=== PATIENT | female | born 1955 | race Caucasian/White ===

== ENCOUNTER 2016-06-29 09:10 | Emergency (ER) | payer OTHER ==
[~2016-06-29] VITALS: Ht 167.6 cm; Wt 67.0 kg
[~2016-06-29 09:10] MED LIST: BUDE100T PO; LEVA250T14 PO; MONT4CHW2 CHEW; PREM0.3T2 PO
[2016-06-29 09:27] VITALS: BP 149/66; PULSE 64; RESP 17; TEMP 97.9; O2SAT 98
[2016-06-29] MEDS ORDERED: TRAM50TA PO (09:36)
[2016-06-29] MEDS ORDERED: ESTR2TAB PO (09:36)
[2016-06-29] MEDS ORDERED: MONT10TA4 PO (09:36)
[2016-06-29] MEDS ORDERED: BUPR100CR PO (09:36)
[2016-06-29] MEDS ORDERED: KETOROLAC TROMETHAMINE 30 MG/ML (IVP) VIAL IV PUSH ONE (09:45)
[2016-06-29] MEDS ORDERED: MORPHINE SULFATE 4 MG/ML INJ IV PUSH ONE (09:45)
--- NOTE | 2016-06-29 09:49 | PD ---
HPI Chief Complaint: Back/ Neck Pain or Injury Time Seen by Provider: 09:28 Travel History International Travel<30 days: No Contact w/Intl Traveler<30days: No Traveled to known affect area: No History of Present Illness HPI This 60-year-old woman who presents to the emergency department complaining of back pain rating in her right leg associated weakness and numbness. She describes numbness across her anterior leg mostly below the knee, as well as weakness and difficulty walking. She states is been ongoing for the past week and has been worsening. She took some Motrin and some tramadol which hasn't helped. She saw her primary doctor yesterday who is ordering an MRI for today. She states she was walking today when she was sober, pain that she got weak and collapsed to ground. She has not been able to walk since. Her called EMS. History Past Medical History Narrative Medical Asthma Hormone replacement therapy Chronic back pain Menopausal: Yes Dilation and Curettage (D&C): Yes Social History Alcohol Use: Yes (RARELY) Tobacco Use: No Allergies-Medications (Allergen,Severity, Reaction): Coded Allergies: Bactrim (Verified Adverse Reaction, Severe, AGUAYO, weakness, nausea, 06/29/16) Reported Meds & Prescriptions Reported Meds & Active Scripts Active Percocet (Oxycodone-Acetaminophen) 5-325 mg Tab 1-2 Tab PO Q4H PRN Debbie-Colace (Sennosides-Docusate Sodium) 8.6-50 Mg Tab 2 Tab PO BID PRN Naprosyn (Naproxen) 500 Mg Tab 500 Mg PO BID PRN Reported Wellbutrin SR 12 HR (Bupropion HCl) 100 Mg Tab 100 Mg PO Q12HR Estradiol 2 Mg Tab 2 Mg PO DAILY Montelukast (Montelukast Sodium) 10 Mg Tab 10 Mg PO HS Tramadol (Tramadol HCl) 50 Mg Tab 50 Mg PO Q4H PRN Review of Systems Except as stated in HPI: all other systems reviewed are Neg Physical Exam Narrative GENERAL: 60 year-old woman, appears uncomfortable. Lying flat on her back. SKIN: Focused skin assessment warm/dry. NECK: Trachea midline. No JVD. CARDIOVASCULAR: Regular rate and rhythm. No murmur appreciated. RESPIRATORY: No accessory muscle use. Clear to auscultation. Breath sounds equal bilaterally. GASTROINTESTINAL: Abdomen soft, non-tender, nondistended. Hepatic and splenic margins not palpable. MUSCULOSKELETAL: No obvious deformities. Some tenderness in the lower back. NEUROLOGICAL: Awake and alert. No obvious cranial nerve deficits. Strength exam of the right lower extremities are limited due to pain. She seems to be a little bit weak and extension and toe extension. Sensation is decreased to light touch across the anterior thigh, and the anterior medial franco. She has absent patellar reflexes on the right leg. Achilles reflex and left leg reflexes are normal. Babinski's are both downgoing. PSYCHIATRIC: Appropriate mood and affect; insight and judgment normal. Data Data Last Documented VS Vital Signs Date Time Temp Pulse Resp B/P Pulse Ox O2 Delivery O2 Flow Rate FiO2 06/29/16 11:34 16 06/29/16 11:09 60 126/59 95 06/29/16 09:27 97.9 Orders Morphine Inj (Morphine Inj) (06/29/16 09:45) Ketorolac Inj (Toradol Inj) (06/29/16 09:45) Mri L Spine W/O Contrast (06/29/16 ) Iv Access Insert/Monitor (06/29/16 09:39) [facility] Medical Decision Making Medical Screen Exam Complete: Yes Emergency Medical Condition: Yes Interpretation(s) MRI L spine: Mild degenerative changes and your does bulges the L1 through L4 levels of mild flattening in anterior thecal sac. No focal protrusion. Degenerative changes walking or facet joints. Differential Diagnosis Radiculopathy, herniated disc, pathologic fracture, other Narrative Course Medical decision making INITIAL: 60-year-old woman who appears to have an L4 or L5 to the top of the, likely from herniated disc. She is having motor weakness and inability to walk at this point. We will give pain control, we'll check MRI, reassess. FINAL: Patient with radicular symptoms, likely sciatica. MRI is unremarkable without focal disc bulges. Recommended supportive treatment. Diagnosis Primary Impression: Sciatica of right side Additional Instructions: Take Naprosyn and Percocet as prescribed. Take Debbie-Colace with Percocet to prevent constipation. Follow-up with your primary doctor in 2-3 days for repeat evaluation. Return to the emergency department for any new or worsening symptoms. Med/Other Pt SpecificInfo: Prescription(s) given Scripts Oxycodone-Acetaminophen (Percocet)5-325 mg Tab1-2 Tab PO Q4H PRN (PAIN) #20 TAB Ref 0 Prov:Joss Varela MD 06/29/16 Sennosides-Docusate Sodium (Debbie-Colace)8.6-50 Mg Tab2 Tab PO BID PRN ( Constipation) #60 TAB Ref 0 Prov:Joss Varela MD 06/29/16 Naproxen (Naprosyn)500 Mg [id number] Mg PO BID PRN (PAIN SCALE 1 TO 10) #20 TAB Prov:Joss Varela MD 06/29/16 Disposition: 01 DISCHARGE HOME Condition: Stable Joss Varela MD Jun 29, 2016 09:49
[2016-06-29 11:09] VITALS: BP 126/59; PULSE 60; RESP 20; O2SAT 95
--- NOTE | 2016-06-29 11:20 | RADRPT ---
EXAM DATE/TIME: 06/29/2016 10:35 [facility] COMPARISON: No previous studies available for comparison. INDICATIONS : HNP. Back pain with right leg pain. MEDICAL HISTORY : SVT. SURGICAL HISTORY : Cardiac ablation. ENCOUNTER: Initial ACUITY: 1 day PAIN SCORE: 8/10 LOCATION: back. TECHNIQUE: Multiplanar multisequence MRI of the lumbar spine was performed without contrast. FINDINGS: The most caudal appearing lumbar vertebra is numbered as L5. VERTEBRAE: Homogeneous signal. Normal alignment. CONUS: Normal level and configuration. T12-L1: The thecal sac has a normal diameter. No evidence of disc bulge or protrusion. The neural foramina are patent bilaterally. L1-L2: There is a minimal annular disc bulge with no mass effect on the thecal sac. There are mild degenerat grecia changes involving the facet joints. The neural foramina are patent bilaterally. L2-L3: There is a mild annular disc bulge with mild flattening of the anterior thecal sac and no focal protr usion. The neural foramina are patent bilaterally. L3-L4: There is a mild annular disc bulge with minimal flattening of the anterior thecal sac and no focal pr otrusion. The neural foramina are patent bilaterally. L4-L5: There is a mild annular disc bulge with flattening of the anterior thecal sac and no focal protrusion . There are degenerative change involving the facet joints with hypertrophy of the ligamentum flavum. The neural foramina are patent bilaterally. L5-S1: The thecal sac has a normal diameter. No evidence of disc bulge or protrusion. The neural foramina are patent bilaterally. There are mild degenerative change involving the facet joints. CONCLUSION: 1. Mild degenerative disc changes with annular disc bulges the L1-2 through L4-5 levels with mild fla ttening of anterior thecal sac no focal protrusion. 2. Degenerative changes involving the lower facet joints. Boogie Green MD on June 29, 2016 at 11:07 Board Certified Radiologist. This report was verified electronically.
[2016-06-29] MEDS ORDERED: PERC5TAB12 PO (11:29)
[2016-06-29] MEDS ORDERED: PERI8.6T PO (11:29)
[2016-06-29] MEDS ORDERED: NAPR500 PO (11:29)
[2016-06-29 11:34] VITALS: RESP 17
[2016-06-29] MEDS ORDERED: oxyCODONE/ACETAMINOPHEN 5 MG/325 MG TAB PO ONE (12:15)
== END 2016-06-29 12:37 | disposition home or self-care (01) ==
LOC: NEPD 09:10
DX: M54.31 Sciatica, right side (principal); M54.5 Low back pain; R26.2 Difficulty in walking, not elsewhere classified; Z79.890 Hormone replacement therapy; Z87.09 Personal history of other diseases of the respiratory system; Z87.39 Personal history of other diseases of the musculoskeletal system and connective tissue
CPT/HCPCS: 72148; 96374; 96375; 99284; J1885; J2270

== ENCOUNTER 2016-07-07 13:13 | Emergency (ER) | payer OTHER ==
[~2016-07-07] VITALS: Ht 175.3 cm; Wt 81.5 kg
[~2016-07-07 13:13] MED LIST changes: -BUDE100T PO; +BUPR100CR PO; +ESTR2TAB PO; -LEVA250T14 PO; +MONT10TA4 PO; -MONT4CHW2 CHEW; +NAPR500 PO; +PERC5TAB12 PO; +PERI8.6T PO; -PREM0.3T2 PO; +TRAM50TA PO
[2016-07-07 13:15] VITALS: BP 147/79; PULSE 82; RESP 20; TEMP 97.5; O2SAT 98
--- NOTE | 2016-07-07 14:05 | PD ---
HPI Chief Complaint: Pain: Acute or Chronic Time Seen by Provider: 13:40 Travel History International Travel<30 days: No Contact w/Intl Traveler<30days: No Traveled to known affect area: No History of Present Illness HPI Patient is a 60-year-old female presenting to emergency for evaluation of right hip pain. Patient states it started 10 days ago and was not preempted bite injury or fall. She states that her right leg just gave out. She was seen and evaluated 1 week ago in the emergency Department with the same complaint. She has followed up with her orthopedic surgeon Dr. Suarez since that time. She states that the pain medication isn't working, she was prescribed naproxen but she stopped using that yesterday. She took Percocet at 12:30 this morning and again at 4 AM with no relief of her symptoms. Today she's vomited when she woke up and has been continuously nauseated. She also reports feeling diaphoretic and having episodes of diarrhea. Her states that she is unable to get out of bed. Patient states that she cannot move her right leg. Patient reports her pain is a 10 out of 10. PFSH Past Medical History Hx Anticoagulant Therapy: No Asthma: Yes Anxiety: Yes Depression: Yes Heart Rhythm Problems: Yes (SVT) Cardiac Catheterization: Yes Cardiovascular Problems: Yes (SVT with ablation ) High Cholesterol: Yes Chemotherapy: No Cerebrovascular Accident: No Diabetes: No Diminished Hearing: No Genitourinary: Yes Pneumonia: Yes Menopausal: Yes Dilation and Curettage (D&C): Yes Past Surgical History Cardiac Surgery: Yes (Ablation for SVT) Hysterectomy: No Social History Alcohol Use: Yes (RARELY) Tobacco Use: No Substance Use: No Allergies-Medications (Allergen,Severity, Reaction): Coded Allergies: Bactrim (Verified Adverse Reaction, Severe, AGUAYO, weakness, nausea, 06/29/16) Reported Meds & Prescriptions Reported Meds & Active Scripts Active Gabapentin 100 Mg Cap 100 Mg PO TID 30 Days Flexeril (Cyclobenzaprine HCl) 10 Mg Tab 10 Mg PO TID PRN 10 Days Ibuprofen 800 Mg Tab 800 Mg PO Q8H PRN 14 Days Percocet (Oxycodone-Acetaminophen) 5-325 mg Tab 1-2 Tab PO Q4H PRN Debbie-Colace (Sennosides-Docusate Sodium) 8.6-50 Mg Tab 2 Tab PO BID PRN Naprosyn (Naproxen) 500 Mg Tab 500 Mg PO BID PRN Reported Wellbutrin SR 12 HR (Bupropion HCl) 100 Mg Tab 100 Mg PO Q12HR Estradiol 2 Mg Tab 2 Mg PO DAILY Montelukast (Montelukast Sodium) 10 Mg Tab 10 Mg PO HS Tramadol (Tramadol HCl) 50 Mg Tab 50 Mg PO Q4H PRN Review of Systems Except as stated in HPI: all other systems reviewed are Neg Musculoskeletal: Positive: Myalgias, Arthralgias, Pain Neurologic: Positive: Sensory Disturbance Physical Exam Narrative GENERAL: Well Developed, Well-nourished, alert female. SKIN: Focused skin assessment warm/dry. HEAD: Atraumatic. Normocephalic. EYES: Pupils equal and round. No scleral icterus. No injection or drainage. ENT: No nasal bleeding or discharge. Mucous membranes pink and moist. NECK: Trachea midline. No JVD. CARDIOVASCULAR: Regular rate and rhythm. No murmur appreciated. RESPIRATORY: No accessory muscle use. Clear to auscultation. Breath sounds equal bilaterally. MUSCULOSKELETAL: No obvious deformities. No clubbing. No cyanosis. No edema. Patient with decreased sensation to right anterior thigh. NEUROLOGICAL: Awake and alert. No obvious cranial nerve deficits. Motor grossly within normal limits. Normal speech. PSYCHIATRIC: Appropriate mood and affect; insight and judgment normal. Data Data Last Documented VS Vital Signs Date Time Temp Pulse Resp B/P Pulse Ox O2 Delivery O2 Flow Rate FiO2 07/07/16 14:13 98.3 79 14 137/79 97 Room Air Orders Ondansetron Odt (Zofran Odt) (07/07/16 14:15) [facility] Medical Decision Making Medical Screen Exam Complete: Yes Emergency Medical Condition: Yes Medical Record Reviewed: Yes Interpretation(s) Vital Signs Date Time Temp Pulse Resp B/P Pulse Ox O2 Delivery O2 Flow Rate FiO2 07/07/16 13:15 97.5 82 20 147/79 98 Differential Diagnosis Discogenic pain versus sciatica versus fracture versus other Narrative Course Patient is a 60-year-old female presenting to the emergency department for evaluation of right hip pain. Patient was seen and evaluated on 06/29/16 for the same complaint. She is also followed up with her orthopedic surgeon Dr. Suarez who ordered an outpatient MRI of the right hip which patient had done yesterday. Patient has had no new injury or trauma. She states her pain is not well controlled and cannot get in with a neurologist for 6 weeks. Patient also started to complain of burning sensation when urinating, she states it's been ongoing since May and she is followed by Dr. Granado her urologist. She also sees Dr. Duran, pharmacy account director for her asthma. Were able to obtain a report of the MRI of the right hip per [facility]. MRI of the right hip that was initially ordered by Dr. Suarez through [facility] shows very mild focal chondral loss of the acetabulum and short segment longitudinal tears of the superolateral and anterior labrum. Minimal insertional tendinosis of the gluteus medias and minimus on the greater trochanter, mild to moderate tendinosis of the right hamstring origin no tear. Patient was observed ambulating in the emergency department to the bathroom, she was noted to have a slight limp but there was no foot drop or dragging of her right foot. started to get defensive stating that he wanted her to be admitted to the hospital. 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 He further notified a family member that works and risk management and the person came down to the emergency department. She was seen and evaluated by my attending physician who spoke with the patient and her family extensively. Patient will be provided with prescriptions for ibuprofen, gabapentin, Flexeril. She is encouraged to follow- up with her primary doctor to obtain a referral for physical therapy. Patient reports improvement in her nausea after administration of Zofran in the emergency department. She will be provided with a prescription for this as well. Patient is stable for discharge. Diagnosis Primary Impression: Sciatica of right side Additional Impression: Hip pain Qualified Code: M25.551 - Pain of right hip joint Referrals: Neurologist Orthopaedic Surgeon Primary Care Physician Patient Instructions: General Instructions, Hip Pain (ED) Additional Instructions: Follow up with your primary doctor for further evaluation and management Follow up with neurologist and orthopedic surgeon as scheduled Take medications as directed Return to the emergency department for any new or worsening symptoms Med/Other Pt SpecificInfo: Prescription(s) given Scripts Ondansetron Odt (Zofran Odt)4 Mg Tab4 Mg SL Q6HR PRN (Nausea/Vomiting) 3 Days Ref 0 Prov:Bozena Chavez 07/07/16 Gabapentin 100 Mg [id number] Mg PO TID 30 Days Ref 0 Prov:Bozena Chavez 07/07/16 Cyclobenzaprine (Flexeril)10 Mg Tab10 Mg PO TID PRN (MUSCLE SPASM) 10 Days Ref 0 Prov:Bozena Chavez 07/07/16 Ibuprofen 800 Mg [id number] Mg PO Q8H PRN (Pain/Inflammation) 14 Days Ref 0 Prov:Bozena Chavez 07/07/16 Disposition: 01 DISCHARGE HOME Condition: Stable Bozena Chavez Jul 07, 2016 14:05
[2016-07-07 14:13] VITALS: BP 137/79; PULSE 79; RESP 14; TEMP 98.3; O2SAT 97
[2016-07-07] MEDS ORDERED: ONDANSETRON ODT 4 MG TAB PO ONE (14:15)
[2016-07-07] MEDS ORDERED: CYCL1TAB29 PO (14:38)
[2016-07-07] MEDS ORDERED: IBUP800T23 PO (14:38)
[2016-07-07] MEDS ORDERED: GABA100C4 PO (14:38)
[2016-07-07] MEDS ORDERED: ZOFR4TAB3 SL (14:43)
[2016-07-07] MEDS ORDERED: MORPHINE SULFATE 4 MG/ML INJ IM ONE (15:00)
[2016-07-07 15:03] VITALS: BP 134/74
--- NOTE | 2016-07-07 15:05 | PD ---
Data Data Last Documented VS Vital Signs Date Time Temp Pulse Resp B/P Pulse Ox O2 Delivery O2 Flow Rate FiO2 07/07/16 14:13 98.3 79 14 137/79 97 Room Air Orders Ondansetron Odt (Zofran Odt) (07/07/16 14:15) Morphine Inj (Morphine Inj) (07/07/16 15:00) MDM Supervised Visit with CHHAYA: Yes Narrative Course I, Dr. Lozano, have reviewed the advance practice practioner's documentation and am in agreement, met with the patient face to face, made the diagnosis, and the medical decision making was done by me. *My assessment and Findings: Pleasant 60-year-old female here with complaint of right hip pain. She's had this for the last 10 days. She's been seen in our ER and had an MRI of the lumbar spine as well as MRI of the right hip as an outpatient. I was able to pull both of these reports and thankfully they'll show any acute changes. She's been taking naproxen which hasn't helped and Percocet which only makes her sleepy. Her exam is consistent with classic sciatica with pain radiating from the right hip/low back and buttock. She does describe some reticular symptoms. She states she cannot move her leg but was able to ambulate to the bathroom independently while here. Patient exam is consistent with sciatica. This was thoroughly explained to her and family at bedside. Though I cannot take this way we can make her symptoms less notable. The Percocet hasn't been helping. Discussed using Flexeril, anti- inflammatories. She was recently on steroids for asthma and does not want to go back on them. We discussed using gabapentin for neuropathic type pain and patient was open to this as well. Encouraged to follow-up with physical therapy. Diagnosis Primary Impression: Sciatica of right side Additional Impression: Hip pain Qualified Code: M25.551 - Pain of right hip joint Referrals: Neurologist Orthopaedic Surgeon Primary Care Physician Patient Instructions: General Instructions, Hip Pain (ED) Additional Instruction: Follow up with your primary doctor for further evaluation and management Follow up with neurologist and orthopedic surgeon as scheduled Take medications as directed Return to the emergency department for any new or worsening symptoms Scripts Ondansetron Odt (Zofran Odt)4 Mg Tab4 Mg SL Q6HR PRN (Nausea/Vomiting) 3 Days Ref 0 Prov:Bozena Chavez 07/07/16 Gabapentin 100 Mg [id number] Mg PO TID 30 Days Ref 0 Prov:Bozena Chavez 07/07/16 Cyclobenzaprine (Flexeril)10 Mg Tab10 Mg PO TID PRN (MUSCLE SPASM) 10 Days Ref 0 Prov:Bozena Chavez 07/07/16 Ibuprofen 800 Mg [id number] Mg PO Q8H PRN (Pain/Inflammation) 14 Days Ref 0 Prov:Bozena Chavez 07/07/16 Disposition: 01 DISCHARGE HOME Condition: Stable Arianna Lozano MD Jul 07, 2016 15:05
== END 2016-07-07 15:16 | disposition home or self-care (01) ==
LOC: NEPD 13:13
DX: M54.31 Sciatica, right side (principal)
CPT/HCPCS: 96372; 99283; J2270